=== PATIENT | male | born 1940 | race Caucasian/White ===

== ENCOUNTER 2018-11-19 08:22 | Emergency (ER) | payer MEDICARE, OTHER ==
--- NOTE | 2018-11-19 10:00 | EDM.PDOC ---
ED HPI GENERAL MEDICAL PROBLEM - General Chief Complaint: Laceration Stated Complaint: LT PINKY LACERATION Time Seen by Provider: 11/19/18 08:35 Source of Information: Reports: Patient History Limitations: Reports: No Limitations - History of Present Illness INITIAL COMMENTS - FREE TEXT/NARRATIVE: Patient is a 77 YO WM who presented to the ED because he accidentally cut his left 5th finger with a wood saw. There is almost complete amputation of the left 5th finger and it's only the skin holding it on. He is able to extend and flex the left 5th finger without any difficulty. - Related Data Allergies Allergy/AdvReac Type Severity Reaction Status Date / Time No Known Allergies Allergy Verified 05/22/13 08:07 Home Meds: Home Meds Cholecalciferol (Vitamin D3) [Vitamin D3] 2,000 unit PO DAILY 05/22/13 [History] Multivitamin with Minerals [Multiple Vitamin] 1 each PO DAILY 05/22/13 [History] atorvaSTATin Calcium [Atorvastatin Calcium] 40 mg PO DAILY 05/22/13 [History] metFORMIN [Glucophage] 500 mg PO BIDMEALS 01/27/16 [History] Losartan Potassium 1 tab PO DAILY 11/19/18 [History] Warfarin Sodium 1 tab PO DAILY 11/19/18 [History] Past Medical History Cardiovascular History: Reports: Aneurysm, Bypass, [place], Stents Other Cardiovascular History: AAA repair done,stents-13 years ago Respiratory History: Reports: None Other Respiratory History: is dim with fine crackles bases Genitourinary History: Reports: Prostate Disorder Musculoskeletal History: Reports: Other (See Below) Other Musculoskeletal History: hx ms, diagnosed 40 years ago Endocrine/Metabolic History: Reports: Diabetes, Type II Oncologic (Cancer) History: Reports: Prostate Other Oncologic History: 3 years ago - Infectious Disease History Infectious Disease History: Reports: Measles - Past Surgical History HEENT Surgical History: Reports: Cataract Surgery, Other (See Below) Cardiovascular Surgical History: Reports: AAA Repair, Coronary Artery Bypass, Coronary Artery Stent Other Neurological Surgeries/Procedures: some back surgery, can't remember Social & Family History - Family History Family Medical History: Noncontributory - Caffeine Use Caffeine Use: Reports: Coffee Other Caffeine Use: 2-3 pots/day ED ROS GENERAL - Review of Systems Review Of Systems: See Below Constitutional: Reports: No Symptoms HEENT: Reports: No Symptoms Respiratory: Reports: No Symptoms Cardiovascular: Reports: No Symptoms Endocrine: Reports: No Symptoms GI/Abdominal: Reports: No Symptoms : Reports: No Symptoms Musculoskeletal: Reports: Hand Pain, Other (almost complete amputation leeft 5th finger) Skin: Reports: No Symptoms Neurological: Reports: No Symptoms Psychiatric: Reports: No Symptoms, Other Immunologic: Reports: No Symptoms ED EXAM, SKIN/RASH Exam: See Below Exam Limited By: No Limitations General Appearance: No Apparent Distress Ears: Normal External Exam, Normal Canal, Hearing Grossly Normal Nose: Normal Inspection, Normal Mucosa, No Blood Throat/Mouth: Normal Inspection, Normal Lips, Normal Teeth Head: Atraumatic, Normocephalic Neck: Normal Inspection, Supple, Non-Tender, Full Range of Motion Respiratory/Chest: No Respiratory Distress, Lungs Clear, Normal Breath Sounds, No Accessory Muscle Use, Chest Non-Tender Cardiovascular: Normal Peripheral Pulses, Regular Rate, Rhythm GI/Abdominal: Normal Bowel Sounds, Soft, No Organomegaly, No Distention (Male) Exam: No Hernia Back Exam: Normal Inspection, Full Range of Motion Extremities: Other (there is almost complete amputation of the left 5th finger. Neurovascular is otherwise intact.) Course - Vital Signs Text/Narrative:: Wound was cleansed and covered with wet dressing. Consult was done with hand surgeon Dr Curtis and agreed to see patient at [facility] ED. Patient opted to go there by private car and his will be driving. NPO for now. Xray-left 5th finger see result Last Recorded V/S: Last Vital Signs Temp 36.4 C 11/19/18 08:30 Pulse 57 L 11/19/18 08:30 Resp 17 11/19/18 08:30 BP 138/58 L 11/19/18 08:30 Pulse Ox 99 11/19/18 08:30 - Orders/Labs/Meds Orders: Active Orders 24 hr Category Date Time Status Fingers Fifth Digit Lt F4 [CR] Stat Exams 11/19/18 08:48 Taken INR,PT,PROTHROMBIN TIME [COAG] Stat Lab 11/19/18 09:46 Ordered Departure - Departure Time of Disposition: 09:30 Disposition: DC/Tfer to Acute Hospital 02 Condition: Good Clinical Impression: Finger amputation, traumatic - Discharge Information *PRESCRIPTION DRUG MONITORING PROGRAM REVIEWED*: No *COPY OF PRESCRIPTION DRUG MONITORING REPORT IN PATIENT ZULMA: No Referrals: Geoffrey Doherty MD [Primary Care Provider] - - My Orders Last 24 Hours: My Active Orders 11/19/18 08:48 Fingers Fifth Digit Lt F4 [CR] Stat 11/19/18 09:46 INR,PT,PROTHROMBIN TIME [COAG] Stat - Assessment/Plan Last 24 Hours: My Active Orders 11/19/18 08:48 Fingers Fifth Digit Lt F4 [CR] Stat 11/19/18 09:46 INR,PT,PROTHROMBIN TIME [COAG] Stat
[2018-11-19 11:10] VITALS: BP 124/77; PULSE 91
--- NOTE | 2018-11-21 10:47 | CR ---
INDICATION: Left 5th finger injury on band saw. LEFT FIFTH FINGER: Three views of the left 5th finger revealed laceration through the distal metaphysis and proximal metaphysis of the middle phalanx and distal phalanges respectively with medial angulation at the fracture site. Degenerative changes are noted at the DIPJ and PIPJ of the 5th finger. Overall bone density appeared to be fairly normal. Degenerative changes are also noted at the interphalangeal joint of the thumb incidentally. IMPRESSION: Fracture with deformity, apparently due to laceration with band saw , distal and middle phalanges of the 5th finger. MTDD
== END 2018-11-19 09:56 ==
LOC: FB.ED 08:22
DX: S68.127A Partial traumatic metacarpophalangeal amputation of left little finger, initial encounter (principal); E11.9 Type 2 diabetes mellitus without complications; I25.2 Old myocardial infarction; Z79.84 Long term (current) use of oral hypoglycemic drugs; Z95.5 Presence of coronary angioplasty implant and graft; Z79.01 Long term (current) use of anticoagulants; W27.0XXA Contact with workbench tool, initial encounter
CPT/HCPCS: 73140-F4; 99284-25

== ENCOUNTER 2020-01-08 09:15 | Emergency (ER) | payer MEDICARE, OTHER ==
--- NOTE | 2020-01-08 10:30 | EDM.PDOC ---
ED HPI GENERAL MEDICAL PROBLEM - General Stated Complaint: SOB,TIRED,LOOSE STOOLS Time Seen by Provider: 01/08/20 09:20 Source of Information: Reports: Patient, Family History Limitations: Reports: No Limitations - History of Present Illness INITIAL COMMENTS - FREE TEXT/NARRATIVE: Patient presented to the ED because of 3 day history of cough and shortness of breath. The cough is non productive no fever or chills. - Related Data Allergies Allergy/AdvReac Type Severity Reaction Status Date / Time No Known Allergies Allergy Verified 05/22/13 08:07 Home Meds: Home Meds Cholecalciferol (Vitamin D3) [Vitamin D3] 2,000 unit PO DAILY 05/22/13 [History] Multivitamin with Minerals [Multiple Vitamin] 1 each PO DAILY 05/22/13 [History] atorvaSTATin Calcium [Atorvastatin Calcium] 40 mg PO DAILY 05/22/13 [History] metFORMIN [Glucophage] 500 mg PO BIDMEALS 01/27/16 [History] Losartan Potassium 1 tab PO DAILY 11/19/18 [History] Warfarin Sodium 1 tab PO DAILY 11/19/18 [History] Past Medical History Cardiovascular History: Reports: Aneurysm, Bypass, [place], Stents Other Cardiovascular History: AAA repair done,stents-13 years ago Respiratory History: Reports: None Other Respiratory History: is dim with fine crackles bases Genitourinary History: Reports: Prostate Disorder Musculoskeletal History: Reports: Other (See Below) Other Musculoskeletal History: hx ms, diagnosed 40 years ago Endocrine/Metabolic History: Reports: Diabetes, Type II Oncologic (Cancer) History: Reports: Prostate Other Oncologic History: 3 years ago - Infectious Disease History Infectious Disease History: Reports: Measles - Past Surgical History HEENT Surgical History: Reports: Cataract Surgery, Other (See Below) Cardiovascular Surgical History: Reports: AAA Repair, Coronary Artery Bypass, Coronary Artery Stent Other Neurological Surgeries/Procedures: some back surgery, can't remember Social & Family History - Family History Family Medical History: No Pertinent Family History - Caffeine Use Caffeine Use: Reports: Coffee Other Caffeine Use: 2-3 pots/day ED ROS GENERAL - Review of Systems Review Of Systems: See Below Constitutional: Reports: No Symptoms HEENT: Reports: No Symptoms Respiratory: Reports: Shortness of Breath, Cough Cardiovascular: Reports: No Symptoms Endocrine: Reports: No Symptoms GI/Abdominal: Reports: No Symptoms : Reports: No Symptoms Musculoskeletal: Reports: No Symptoms Skin: Reports: No Symptoms ED EXAM, GENERAL - Physical Exam Exam: See Below Exam Limited By: No Limitations General Appearance: Alert, No Apparent Distress Eye Exam: Bilateral Eye: PERRL Ears: Normal External Exam Nose: Normal Inspection, No Blood, Nasal Swelling Throat/Mouth: Normal Inspection, Normal Lips, Normal Teeth Head: Atraumatic, Normocephalic Neck: Normal Inspection, Supple, Non-Tender Respiratory/Chest: No Respiratory Distress, Lungs Clear Cardiovascular: Normal Peripheral Pulses, Regular Rate, Rhythm, No Edema, No Gallop GI/Abdominal: Normal Bowel Sounds, Soft, Non-Tender, No Organomegaly Back Exam: Normal Inspection, Full Range of Motion Course - Vital Signs Text/Narrative:: Labs/EKG/CXR result was discussed with patient - Orders/Labs/Meds Orders: Active Orders 24 hr Category Date Time Status EKG Documentation Completion [RC] ASDIRECTED Care 01/08/20 09:26 Active Chest 1V Frontal [CR] Stat Exams 01/08/20 09:20 Taken CORONAVIRUS COVID-19 ALISON [MOLEC] Stat Lab 01/08/20 09:29 Received EKG 12 Lead [EK] Routine Ther 01/08/20 09:26 Ordered Labs: Laboratory Tests 01/08/20 01/08/20 01/08/20 Range/Units 09:33 09:33 09:33 WBC 4.8 (3.2-10.1) x10-3/uL RBC 4.65 (3.90-5.90) x10(6)uL Hgb 13.0 (12.9-17.7) g/dL Hct 38.9 (38.3-50.1) % MCV 83.6 (80.8-98.7) fL MCH 28.0 (27.0-33.3) pg MCHC 33.5 (28.7-35.3) g/dL RDW 13.7 (12.4-15.0) % Plt Count 176 (117-477) x10(3)uL MPV 9.2 (6.7-11.0) fL Neut % (Auto) 63.2 (40.3-71.8) % Lymph % (Auto) 21.1 (15.8-45.3) % [place] % (Auto) 13.1 (5.5-15.2) % Eos % (Auto) 1.7 (0.1-6.8) % Baso % (Auto) 0.9 (0.3-3.8) % Neut # (Auto) 3.1 (1.7-6.9) x10-3/uL Lymph # (Auto) 1.0 (0.5-4.5) x10-3/uL [place] # (Auto) 0.6 (0.0-1.2) x10-3/uL Eos # (Auto) 0.1 (0.0-0.6) x10-3/uL Baso # (Auto) 0.0 (0.0-0.3) x10-3/uL Sodium 137 (135-145) mmol/L Potassium 4.2 (3.5-5.3) mmol/L Chloride 101 (100-110) mmol/L Carbon Dioxide 26 (21-32) mmol/L BUN 19 H (7-18) mg/dL Creatinine 0.9 (0.70-1.30) mg/dL Est Cr Clr Drug Dosing TNP Estimated GFR (MDRD) > 60 (>60) BUN/Creatinine Ratio 21.1 H (9-20) Glucose 82 (80-116) mg/dL Calcium 8.7 (8.6-10.2) mg/dL Total Bilirubin 0.4 (0.1-1.3) mg/dL AST 16 (5-25) IU/L ALT 21 (12-36) U/L Alkaline Phosphatase 65 (56-112) IU/L Troponin I 21.1 (4.0-60.3) pg/mL Total Protein 6.9 (6.0-8.0) g/dL Albumin 3.1 L (3.2-4.6) g/dL Globulin 3.8 g/dL Albumin/Globulin Ratio 0.8 Departure - Departure Time of Disposition: 11:00 Disposition: Home, Self-Care 01 Condition: Good Clinical Impression: Viral respiratory infection - Discharge Information Referrals: Geoffrey Doherty MD [Primary Care Provider] - Additional Instructions: Please read discharge instructions on viral URI Increase oral fluids Tylenol 1000 mg every 8 hours as needed for aches/fever Follow up as needed - My Orders Last 24 Hours: My Active Orders 01/08/20 09:20 Chest 1V Frontal [CR] Stat 01/08/20 09:26 EKG Documentation Completion [RC] ASDIRECTED EKG 12 Lead [EK] Routine 01/08/20 09:29 CORONAVIRUS COVID-19 ALISON [MOLEC] Stat - Assessment/Plan Last 24 Hours: My Active Orders 01/08/20 09:20 Chest 1V Frontal [CR] Stat 01/08/20 09:26 EKG Documentation Completion [RC] ASDIRECTED EKG 12 Lead [EK] Routine 01/08/20 09:29 CORONAVIRUS COVID-19 ALISON [MOLEC] Stat
--- NOTE | 2020-01-08 10:51 | CR ---
INDICATION: Dyspnea. CHEST ONE VIEW: Two AP upright portable views of the chest were obtained 01/08/20 and compared with 01/27/16 and 07/09/09. The heart remains normal in size. There is evidence of interval median sternotomy. The aorta is slightly tortuous with suggestion of some calcification near the arch. A definite active infiltrate or effusion was not identified. The lungs appear to be somewhat hyperaerated with minimal flattening of the left hemidiaphragm leaf suggesting COPD, possibly progressive, or exacerbated. IMPRESSION: 1. COPD likely with possible exacerbation or progression. 2. ASHD with post median sternotomy change. MTDD
[2020-01-08 19:23] VITALS: BP 138/52; PULSE 52
== END 2020-01-08 10:45 | disposition home or self-care (01) ==
LOC: FB.ED 09:15
DX: J98.8 Other specified respiratory disorders (principal); B97.89 Other viral agents as the cause of diseases classified elsewhere; E11.9 Type 2 diabetes mellitus without complications; Z79.84 Long term (current) use of oral hypoglycemic drugs; Z79.01 Long term (current) use of anticoagulants; Z79.899 Other long term (current) drug therapy; Z20.828 Contact with and (suspected) exposure to other viral communicable diseases
CPT/HCPCS: 36415; 71045; 80053; 84484; 85025; 93005; 99285; U0002; 99283

== ENCOUNTER 2020-10-29 11:09 | Emergency (ER) | payer MEDICARE, OTHER ==
[2020-10-29] MEDS ORDERED: Sodium Chloride 0.9% 10 ML Syringe FLUSH PRN (11:28)
[2020-10-29] MEDS ORDERED: Sodium Chloride 0.9% 1,000 ML IV SCH (11:45)
[2020-10-29 11:56] VITALS: BP 136/67; PULSE 89
--- NOTE | 2020-10-29 14:31 | EDM.PDOC ---
ED HPI GENERAL MEDICAL PROBLEM - General Chief Complaint: Neurological Problem Stated Complaint: Altered LOC Time Seen by Provider: 10/29/20 11:20 Source of Information: Reports: Patient History Limitations: Reports: No Limitations - History of Present Illness INITIAL COMMENTS - FREE TEXT/NARRATIVE: Patient is a 79 YO WM who presented to the ED from the [facility] because o f: confusion and lethargy, slow to respond which started yesterday morning. There no other focal Neurologic deficits. There is no fever, chills, cough or cold symptoms. There is no N/V/D. He was vaccinated with Covid and no known exposure. - Related Data Allergies Allergy/AdvReac Type Severity Reaction Status Date / Time No Known Allergies Allergy Verified 05/22/13 08:07 Home Meds: Home Meds Cholecalciferol (Vitamin D3) [Vitamin D3] 1,000 unit PO DAILY 05/22/13 [History] Multivitamin with Minerals [Multiple Vitamin] 1 each PO DAILY 05/22/13 [History] atorvaSTATin Calcium [Atorvastatin Calcium] 40 mg PO DAILY 05/22/13 [History] metFORMIN [Glucophage] 1,000 mg PO BIDMEALS 01/27/16 [History] Losartan Potassium 1 tab PO DAILY 11/19/18 [History] Warfarin Sodium 1 tab PO DAILY 11/19/18 [History] Aspirin 81 mg PO DAILY 10/29/20 [History] Metoprolol Succinate [Toprol Xl] 50 mg PO DAILY 10/29/20 [History] amLODIPine [Norvasc] 5 mg PO DAILY 10/29/20 [History] Past Medical History Cardiovascular History: Reports: Aneurysm, Bypass, [place], Stents Other Cardiovascular History: AAA repair done,stents-13 years ago Respiratory History: Reports: None Other Respiratory History: is dim with fine crackles bases Genitourinary History: Reports: Prostate Disorder Musculoskeletal History: Reports: Other (See Below) Other Musculoskeletal History: hx ms, diagnosed 40 years ago Endocrine/Metabolic History: Reports: Diabetes, Type II Oncologic (Cancer) History: Reports: Prostate Other Oncologic History: 3 years ago - Infectious Disease History Infectious Disease History: Reports: Measles - Past Surgical History HEENT Surgical History: Reports: Cataract Surgery, Other (See Below) Other HEENT Surgeries/Procedures: bilateral Cardiovascular Surgical History: Reports: AAA Repair, Coronary Artery Bypass, Coronary Artery Stent Male Surgical History: Reports: Other (See Below) Other Male Surgeries/Procedures: hx prostate cancer, 2 years ago Endocrine Surgical History: Reports: None Other Neurological Surgeries/Procedures: some back surgery, can't remember Social & Family History - Family History Family Medical History: No Pertinent Family History - Tobacco Use Tobacco Use Status *Q: Former Tobacco User Used Tobacco, but Quit: Yes Month/Year Tobacco Last Used: 06/2017 - Caffeine Use Caffeine Use: Reports: Coffee Other Caffeine Use: 2-3 pots/day - Recreational Drug Use Recreational Drug Use: No ED ROS GENERAL - Review of Systems Review Of Systems: See Below Constitutional: Reports: No Symptoms HEENT: Reports: No Symptoms Respiratory: Reports: No Symptoms Cardiovascular: Reports: No Symptoms Endocrine: Reports: No Symptoms GI/Abdominal: Reports: No Symptoms : Reports: No Symptoms Musculoskeletal: Reports: No Symptoms Skin: Reports: No Symptoms Neurological: Reports: Confusion Psychiatric: Reports: No Symptoms Hematologic/Lymphatic: Reports: No Symptoms Immunologic: Reports: No Symptoms ED EXAM, NEURO - Physical Exam Exam: See Below Exam Limited By: No Limitations General Appearance: Alert, No Apparent Distress Eye Exam: Bilateral Eye: PERRL Ears: Normal External Exam, Normal Canal Nose: Normal Inspection, Normal Mucosa, No Blood Throat/Mouth: Normal Inspection, Normal Lips, Normal Teeth, Normal Gums Head Exam: Atraumatic, Normocephalic Neck: Normal Inspection, Supple, Non-Tender, Full Range of Motion Respiratory/Chest: No Respiratory Distress, Lungs Clear, Normal Breath Sounds, No Accessory Muscle Use, Chest Non-Tender, Respiratory Distress Cardiovascular: Normal Peripheral Pulses, Regular Rate, Rhythm, No Edema, No Gallop, No JVD, No Murmur GI/Abdominal: Normal Bowel Sounds, Soft, Non-Tender, No Organomegaly Neurological: Normal Mood/Affect, Normal Dorsiflexion, CN II-XII Intact, Normal Plantar Flexion, Normal Gait, Normal Reflexes, No Motor/Sensory Deficits (Oriented X 2) Back Exam: Normal Inspection, Full Range of Motion Extremities: Normal Inspection, Normal Range of Motion, Non-Tender Psychiatric: Normal Affect, Normal Mood #1 Interpretation EKG Date: 10/29/20 Time: 11:19 Rhythm: A-Fib Rate (Beats/Min): 87 [place]: Normal P-Wave: Present ST-T: Normal QT: Normal Comparison: No Change EKG Interpretation Comments: A FIB LVH PVC's Course - Vital Signs Text/Narrative:: Lab/EKG/CXR result was reviewed and discussed with patient and his Case was discussed with Dr Khalil(stroke neurologist at [place]) and Dr Morgan(hospitalist) who want patient to be transferred to [place] for further work up. Last Recorded V/S: Last Vital Signs Temp 36.8 C 10/29/20 11:10 Pulse 89 10/29/20 11:10 Resp 18 10/29/20 11:10 BP 136/67 10/29/20 11:10 Pulse Ox 97 10/29/20 11:10 - Orders/Labs/Meds Orders: Active Orders 24 hr Category Date Time Status Chest 1V Frontal [CR] Stat Exams 10/29/20 11:28 Taken Head wo Cont [CT] Stat Exams 10/29/20 Taken Sodium Chloride 0.9% [Normal Saline] 1,000 ml Med 10/29/20 11:45 Active IV ASDIRECTED Sodium Chloride 0.9% [Saline Flush] Med 10/29/20 11:28 Active 10 ml FLUSH ASDIRECTED PRN Saline Lock Insert [OM.PC] Routine Oth 10/29/20 11:28 Ordered EKG 12 Lead [EK] Routine Ther 10/29/20 11:28 Ordered Medication Orders Sodium Chloride (Normal Saline) 1,000 mls @ 500 mls/hr IV ASDIRECTED KIM Last Admin: 10/29/20 11:35 Dose: 500 mls/hr Documented by: MASOOD Sodium Chloride (Sodium Chloride 0.9% 10 Ml Syringe) 10 ml FLUSH ASDIRECTED PRN PRN Reason: Keep Vein Open Last Admin: 10/29/20 11:15 Dose: 10 ml Documented by: MASOOD Labs: Laboratory Tests 10/29/20 10/29/20 10/29/20 Range/Units 11: 11:40 11:50 WBC 11.0 H (3.2-10.1) x10-3/uL RBC 5.16 (3.90-5.90) x10(6)uL Hgb 14.2 (12.9-17.7) g/dL Hct 42.7 (38.3-50.1) % MCV 82.7 (80.8-98.7) fL MCH 27.4 (27.0-33.3) pg MCHC 33.2 (28.7-35.3) g/dL RDW 14.6 (12.4-15.0) % Plt Count 214 (117-477) x10(3)uL MPV 9.0 (6.7-11.0) fL Neut % (Auto) 73.9 H (40.3-71.8) % Lymph % (Auto) 15.4 L (15.8-45.3) % [place] % (Auto) 9.0 (5.5-15.2) % Eos % (Auto) 1.0 (0.1-6.8) % Baso % (Auto) 0.7 (0.3-3.8) % Neut # (Auto) 8.1 H (1.7-6.9) x10-3/uL Lymph # (Auto) 1.7 (0.5-4.5) x10-3/uL [place] # (Auto) 1.0 (0.0-1.2) x10-3/uL Eos # (Auto) 0.1 (0.0-0.6) x10-3/uL Baso # (Auto) 0.1 (0.0-0.3) x10-3/uL Sodium (135-145) mmol/L Potassium (3.5-5.3) mmol/L Chloride (100-110) mmol/L Carbon Dioxide (21-32) mmol/L BUN (7-18) mg/dL Creatinine (0.70-1.30) mg/dL Est Cr Clr Drug Dosing mL/min Estimated GFR (MDRD) (>60) BUN/Creatinine Ratio (9-20) Glucose (80-116) mg/dL POC Glucose 160 H (80-116) mg/dL Calcium (8.6-10.2) mg/dL Total Bilirubin (0.1-1.3) mg/dL AST (5-25) IU/L ALT (12-36) U/L Alkaline Phosphatase (56-112) IU/L Troponin I (4.0-60.3) pg/mL Total Protein (6.0-8.0) g/dL Albumin (3.2-4.6) g/dL Globulin g/dL Albumin/Globulin Ratio Urine Color (YELLOW) Urine Appearance (CLEAR) Urine pH (5.0-6.5) Ur Specific [place] (1.010-1.025) Urine Protein (NEGATIVE) mg/dL Urine Glucose (UA) (NORMAL) mg/dL Urine Ketones (NEGATIVE) mg/dL Urine Occult Blood (NEGATIVE) Urine Nitrite (NEGATIVE) Urine Bilirubin (NEGATIVE) Urine Urobilinogen (NEGATIVE) mg/dL Ur Leukocyte Esterase (NEGATIVE) U Hyaline Cast (Auto) (NS) Urine RBC (0-5) Urine WBC (0-5) Ur Squamous Epith Cells (NS,R,O) Urine Bacteria (NS) SARS-CoV-2 RNA (ALISON) Negative (NEGATIVE) 10/29/20 10/29/20 10/29/20 Range/Units 11:50 11:50 12:25 WBC (3.2-10.1) x10-3/uL RBC (3.90-5.90) x10(6)uL Hgb (12.9-17.7) g/dL Hct (38.3-50.1) % MCV (80.8-98.7) fL MCH (27.0-33.3) pg MCHC (28.7-35.3) g/dL RDW (12.4-15.0) % Plt Count (117-477) x10(3)uL MPV (6.7-11.0) fL Neut % (Auto) (40.3-71.8) % Lymph % (Auto) (15.8-45.3) % [place] % (Auto) (5.5-15.2) % Eos % (Auto) (0.1-6.8) % Baso % (Auto) (0.3-3.8) % Neut # (Auto) (1.7-6.9) x10-3/uL Lymph # (Auto) (0.5-4.5) x10-3/uL [place] # (Auto) (0.0-1.2) x10-3/uL Eos # (Auto) (0.0-0.6) x10-3/uL Baso # (Auto) (0.0-0.3) x10-3/uL Sodium 136 (135-145) mmol/L Potassium 4.5 (3.5-5.3) mmol/L Chloride 100 (100-110) mmol/L Carbon Dioxide 23 (21-32) mmol/L BUN 25 H (7-18) mg/dL Creatinine 1.0 (0.70-1.30) mg/dL Est Cr Clr Drug Dosing 66.82 mL/min Estimated GFR (MDRD) > 60 (>60) BUN/Creatinine Ratio 25.0 H (9-20) Glucose 141 H (80-116) mg/dL POC Glucose (80-116) mg/dL Calcium 9.0 (8.6-10.2) mg/dL Total Bilirubin 0.5 (0.1-1.3) mg/dL AST 20 D (5-25) IU/L ALT 22 (12-36) U/L Alkaline Phosphatase 94 (56-112) IU/L Troponin I 25.2 (4.0-60.3) pg/mL Total Protein 6.9 (6.0-8.0) g/dL Albumin 3.5 (3.2-4.6) g/dL Globulin 3.4 g/dL Albumin/Globulin Ratio 1.0 Urine Color Yellow (YELLOW) Urine Appearance Slightly cloudy (CLEAR) Urine pH 6.0 (5.0-6.5) Ur Specific [place] 1.015 (1.010-1.025) Urine Protein 30 H (NEGATIVE) mg/dL Urine Glucose (UA) Normal (NORMAL) mg/dL Urine Ketones Negative (NEGATIVE) mg/dL Urine Occult Blood Moderate H (NEGATIVE) Urine Nitrite Negative (NEGATIVE) Urine Bilirubin Negative (NEGATIVE) Urine Urobilinogen 4 H (NEGATIVE) mg/dL Ur Leukocyte Esterase Negative (NEGATIVE) U Hyaline Cast (Auto) Occasional H (NS) Urine RBC 0-5 (0-5) Urine WBC 0-5 (0-5) Ur Squamous Epith Cells Occasional (NS,R,O) Urine Bacteria Few H (NS) SARS-CoV-2 RNA (ALISON) (NEGATIVE) Meds: Medications Generic Name Dose Route Start Last Admin Trade Name Freq PRN Reason Stop Dose Admin Sodium Chloride 1,000 mls @ 500 mls/hr 10/29/20 11:45 10/29/20 11:35 Normal Saline IV 500 mls/hr ASDIRECTED KIM Administration Sodium Chloride 10 ml 10/29/20 11:28 10/29/20 11:15 Sodium Chloride 0.9% 10 Ml Syringe FLUSH 10 ml ASDIRECTED PRN Administration Keep Vein Open Departure - Departure Time of Disposition: 17:00 Disposition: DC/Tfer to Acute Hospital 02 Condition: Good Clinical Impression: Dehydration, Encephalopathy - Discharge Information Referrals: Ruben Mckinnon MD [Primary Care Provider] - Forms: ED Department Discharge Sepsis Event Note (ED) - Evaluation Sepsis Screening Result: No Definite Risk - Focused Exam Vital Signs: Vital Signs Temp Pulse Resp BP Pulse Ox 10/29/20 11:10 36.8 C 89 18 136/67 97 - My Orders Last 24 Hours: My Active Orders 10/29/20 Head wo Cont [CT] Stat 10/29/20 11:28 Chest 1V Frontal [CR] Stat Sodium Chloride 0.9% [Saline Flush] 10 ml FLUSH ASDIRECTED PRN Saline Lock Insert [OM.PC] Routine EKG 12 Lead [EK] Routine 10/29/20 11:45 Sodium Chloride 0.9% [Normal Saline] 1,000 ml IV ASDIRECTED - Assessment/Plan Last 24 Hours: My Active Orders 10/29/20 Head wo Cont [CT] Stat 10/29/20 11:28 Chest 1V Frontal [CR] Stat Sodium Chloride 0.9% [Saline Flush] 10 ml FLUSH ASDIRECTED PRN Saline Lock Insert [OM.PC] Routine EKG 12 Lead [EK] Routine 10/29/20 11:45 Sodium Chloride 0.9% [Normal Saline] 1,000 ml IV ASDIRECTED
--- NOTE | 2020-10-29 17:06 | CR ---
CHEST ONE VIEW INDICATION: Cough. FINDINGS: Two AP portable upright views of the chest 10/29/20 were compared with and 01/27/16. The heart appears to be within normal limits or slightly prominent in size - near the upper limits of normal is size. Overlying EKG leads are noted. Evidence of previous median sternotomy is noted. Markings are similar to the previous examination without a definite consolidating pneumonia or effusion identified. However, it is difficult to entirely exclude minimal patchy bronchopneumonia with somewhat heavy markings at the lung bases. MTDD
[2020-10-29] MEDS ORDERED: Albuterol/Ipratropium 3.0-0.5 MG/3 ML Neb Soln ONE (23:06)
[2020-10-29] MEDS ORDERED: methylPREDNISolone Sodium Succinate 125 MG/2 ML SDV ONE (23:06)
== END 2020-10-29 17:20 ==
LOC: FB.ED 11:09
DX: G93.40 Encephalopathy, unspecified (principal); E86.0 Dehydration; E11.9 Type 2 diabetes mellitus without complications; I25.2 Old myocardial infarction; Z87.891 Personal history of nicotine dependence; Z79.82 Long term (current) use of aspirin; Z79.01 Long term (current) use of anticoagulants; Z79.84 Long term (current) use of oral hypoglycemic drugs; Z79.899 Other long term (current) drug therapy; Z20.822 Contact with and (suspected) exposure to COVID-19
CPT/HCPCS: 36415; 70450; 71045; 80053; 81001; 82947; 84484; 85025; 93005; 99285; J7030; U0002